=== PATIENT | male | born 1995 | race Two or more races ===

== ENCOUNTER 2021-02-07 18:08 | Emergency (ER) | payer SELFPAY ==
[~2021-02-07] VITALS: Ht 177.8 cm; Wt 68.0 kg
[2021-02-07 18:11] VITALS: BP 103/78
== END 2021-02-07 18:35 | disposition home or self-care (01) ==
LOC: ER 18:08
DX: R07.89 Other chest pain (principal)
CPT/HCPCS: 93005; 99283